=== PATIENT | female | born 1990 | race Caucasian/White ===

== ENCOUNTER 2021-11-10 12:15 | Inpatient (IN) ==
[~2021-11-10 12:15] MED LIST: Famotidine 20 MG/2 ML VIAL IVP PRN; Metoclopramide 10 MG/2 ML VIAL IVP PRN; Naloxone 0.4 MG/ML INJ IVP PRN; Ringers Solution, Lactated 1,000 ML ONE
[2021-11-10 12:33] LABS: Basophils % 0.3 %; Eosinophils # 0.1 K/mcL (0.0-0.6); Eosinophils % 1.1 %; Hemoglobin 11.3 g/dL (11.5-15.4); Immature Granulocytes % 0.8 % (0-4); Lymphocytes # 0.9 K/mcL (0.6-4.6); Lymphocytes % 11.9 %; Mean Corpuscular HGB Conc 34.2 g/dL (31.6-35.5); Mean Corpuscular Volume 84.6 fL (83.0-100.0); Mean Platelet Volume 10.7 fL (9.4-12.4); Monocytes # 0.4 K/mcL (0.0-1.3); Monocytes % 5.9 %; Neutrophils # 5.7 K/mcL (1.6-8.9); Platelet Count 170 K/mcL (140-400); Red Cell Distribution Width 13.7 % (11.5-14.5); White Blood Count 7.1 K/mcL (4.3-11.1)
[2021-11-10] MEDS ORDERED: CeFAZolin 2,000 MG/120 ML BAG IVPB ONE (13:22)
[2021-11-10] MEDS ORDERED: Ringers Solution, Lactated 1,000 ML IVC ONE (13:22)
[2021-11-10] MEDS ORDERED: Metoclopramide 10 MG/2 ML VIAL IVP ONE (13:22)
[2021-11-10] MEDS ORDERED: Azithromycin 500 MG in 0.9 % Sodium Chloride 250 ML IVPB PRN (13:22)
[2021-11-10] MEDS ORDERED: Famotidine 20 MG/2 ML VIAL IVP ONE (13:22)
[2021-11-10] MEDS ORDERED: OXYTOCIN/RINGERS LACTATE 10 UNIT/166.6 ML BAG IVC ONE ×2 (13:22→16:30)
[2021-11-10] MEDS ORDERED: Oxytocin 30 UNIT/503 ML BAG IVC ONE (14:11)
[2021-11-10] MEDS ORDERED: Acetaminophen IV 1,000 MG/100 ML BAG IVPB PRN (14:16)
[2021-11-10] MEDS ORDERED: Promethazine 6.25 MG in Water for inj. (sterile) 20 ML IVPB PRN (14:16)
[2021-11-10] MEDS ORDERED: *HR* HYDROmorphone PF 0.5 MG/0.5 ML SYRINGE IVP PRN (14:16)
[2021-11-10] MEDS ORDERED: *HR* Meperidine 25 MG/ML SYRINGE IVP PRN (14:17)
[2021-11-10] MEDS ORDERED: *HR* Morphine Sulfate/PF 10 MG/10 ML AMPUL ONE (14:21)
[2021-11-10] MEDS ORDERED: *HR* FentaNYL (PF) 100 MCG/2 ML VIAL ONE (14:21)
[2021-11-10] MEDS ORDERED: EPHEDrine 50 MG/ML VIAL ONE (14:21)
[2021-11-10] MEDS ORDERED: *HR* Midazolam HCl 2 MG/2 ML VIAL ONE (14:24)
[2021-11-10] MEDS ORDERED: Ondansetron 4 MG/2 ML VIAL ONE (14:25)
[2021-11-10] MEDS ORDERED: Ringers Solution, Lactated 2,000 ML ONE (14:25)
[2021-11-10] MEDS ORDERED: *HR* Oxytocin 10 UNIT/ML VIAL ONE (15:04)
[2021-11-10] MEDS ORDERED: Ketorolac 30 MG/ML VIAL ONE (15:14)
[2021-11-10 15:58] LABS: Amphetamine Screen,Urine Negative ng/mL (Cutoff=1000); Barbiturate Screen,Urine Negative ng/mL (Cutoff=200); Benzodiazepines Screen,Urine Negative ng/mL (Cutoff=200); Cannabinoid Screen,Urine Negative ng/mL (Cutoff = 50); Cocaine Screen,Urine Negative ng/mL (Cutoff= 300); Opiate Screen,Urine Negative ng/mL (Cutoff=300); Phencyclidine Screen,Urine Negative ng/mL (Cutoff=25)
[2021-11-10] MEDS ORDERED: *HR* OxyCODONE Immed Rel 5 MG TABLET PO PRN (16:30)
[2021-11-10] MEDS ORDERED: Ondansetron 4 MG/2 ML VIAL IVP PRN (16:30)
[2021-11-10] MEDS ORDERED: Rho Immune Globulin 1,500 UNIT SYRINGE IM ONE (16:30)
[2021-11-10] MEDS ORDERED: Metoclopramide 10 MG/2 ML VIAL IVP PRN (16:30)
[2021-11-10] MEDS ORDERED: Ringers Solution, Lactated 1,000 ML IVC SCH (16:30)
[2021-11-10] MEDS ORDERED: Simethicone 80 MG TAB.CHEW PO PRN (16:30)
[2021-11-10] MEDS ORDERED: Ibuprofen 600 MG TABLET PO SCH (18:38)
[2021-11-10] MEDS: Ibuprofen 600 MG TABLET PO SCH (19:39)
[2021-11-10] MEDS: Acetaminophen 325 MG TABLET PO SCH (19:39)
[2021-11-11 03:41] LABS: Basophils % 0.5 %; Eosinophils # 0.2 K/mcL (0.0-0.6); Eosinophils % 1.9 %; Hematocrit 28.2 % (35.3-44.9); Immature Granulocytes % 0.5 % (0-4); Lymphocytes # 1.4 K/mcL (0.6-4.6); Lymphocytes % 15.8 %; Mean Corpuscular HGB Conc 33.3 g/dL (31.6-35.5); Monocytes # 0.7 K/mcL (0.0-1.3); Monocytes % 8.1 %; Neutrophils # 6.4 K/mcL (1.6-8.9); Platelet Count 148 K/mcL (140-400); Red Blood Count 3.24 M/mcL (3.82-4.97); Red Cell Distribution Width 13.7 % (11.5-14.5); Segmented Neutrophils % 73.2 %; White Blood Count 8.7 K/mcL (4.3-11.1)
[2021-11-11 03:42] LABS: Hemoglobin 9.4 g/dL (11.5-15.4)
[2021-11-11] MEDS: Ibuprofen 600 MG TABLET PO SCH ×3 (03:44→16:07)
[2021-11-11] MEDS: Acetaminophen 325 MG TABLET PO SCH ×4 (03:44→18:35)
[2021-11-11 06:48] VITALS: O2SAT 97
[2021-11-11] MEDS ORDERED: Prenatal Vit/FA 1 EACH TABLET PO SCH (09:00)
[2021-11-11] MEDS ORDERED: NON-FORMULARY MEDICATION 1 EACH EACH (Prenatal 19 Tablet 1 TAB) PO SCH (09:00)
[2021-11-11 15:57] VITALS: BP 111/81; PULSE 14; TEMP 98.2
== END 2021-11-11 20:20 | disposition home or self-care (01) | DRG 783 ==
LOC: 1NENULAB → 1NENUOBS 18:20
PROVIDERS: ADMIT Student in an Organized Health Care Education/Training Program; ATTEND Student in an Organized Health Care Education/Training Program